=== PATIENT | male | born 1950 | race Caucasian/White ===

== ENCOUNTER 2018-07-09 14:42 | Outpatient (CLI) | payer MEDICARE ==
[2018-07-09 16:05] LABS: Bilirubin Negative (Negative); Blood, Urine Negative (Negative); Clarity CLEAR (Clear); Glucose, Urine (Dipstick) >=1000 mg/dL (Negative); Leukocyte Negative (Negative); Nitrite Negative (Negative); Protein, Urine (Dipstick) Negative (Neg-Trace); Specific Gravity, Urine 1.033 (1.002-1.036); Urobilinogen 0.2 mg/dL (0.2-1.0)
[2018-07-09 16:06] LABS: Hemoglobin 16.5 g/dL (14.0-18.0); Mean Corpuscular HGB CONC 32.9 g/dL (32.0-36.0); Mean Corpuscular Hemoglobin 31.5 pg (27.0-31.0); Mean Corpuscular Volume 95.6 fL (78.0-98.0); Mean Platelet Volume 6.9 fL (7.4-10.4); Platelet Count 183 thou/uL (130-400); RBC Distribution Width 12.2 % (11.5-14.5); Red Blood Cell (RBC) Count 5.25 mill/uL (4.70-6.10); White Blood Cell (WBC) Count 7.3 thou/uL (4.8-10.8)
[2018-07-09 16:08] LABS: Bacteria/HPF None Seen HPF (None Seen); Hyaline Casts/LPF 0-3 HYALINE CAST LPF (0-3 Hyaline); RBC/HPF 0-3 HPF (0-3); Squamous Epithelial None Seen HPF (0-3); WBC/HPF None Seen HPF (0-3)
[2018-07-09 16:23] LABS: Anion Gap 14 mmol/L (10-20); BUN (Urea Nitrogen) 23 mg/dL (8.4-25.7); Calc. Creatinine Clearance 0 mL/min (70-130); Calcium 10.1 mg/dL (7.8-10.44); Carbon Dioxide 26 mmol/L (23-31); Chloride 104 mmol/L (98-107); Estimated GFR-MDRD 77; Glucose 125 mg/dL (80-115); Potassium 4.1 mmol/L (3.5-5.1); Sodium 140 mmol/L (136-145)
--- NOTE | 2018-07-14 16:51 | EKG ---
Test Reason : Blood Pressure : / mmHG Vent. Rate : 056 BPM Atrial Rate : 056 BPM P-R Int : 108 ms QRS Dur : 104 ms QT Int : 438 ms P-R-T Axes : 046 095 023 degrees QTc Int : 422 ms Sinus bradycardia with short [place] Rightward axis Inferior infarct , age undetermined Possible Anterior infarct , age undetermined Abnormal ECG No previous ECGs available Confirmed by ROSENDA ROBB (2) on 07/14/2018 4:51:11 PM Referred By: SARAH Confirmed By:ROSENDA ROBB
== END 2018-07-09 14:43 | disposition home or self-care (01) ==
LOC: LABBT 14:42
PROVIDERS: ATTEND Urology
DX: Z01.818 Encounter for other preprocedural examination (principal); N40.1 Benign prostatic hyperplasia with lower urinary tract symptoms; R35.1 Nocturia; R39.12 Poor urinary stream; R97.20 Elevated prostate specific antigen [PSA]; R81 Glycosuria
CPT/HCPCS: 80048; 81001; 85027; 87086; 93005; 93010

== ENCOUNTER 2018-07-16 05:43 | Day surgery (SDC) | payer MEDICARE ==
[2018-07-09 15:05] VITALS: BMI 32.7
[2018-07-16] MEDS ORDERED: Fentanyl 100 MCG/2 ML VIAL ONE (07:06)
[2018-07-16] MEDS ORDERED: Levofloxacin 500 mg/D5W 100 ml Premix Bag ONE (07:07)
[2018-07-16] MEDS ORDERED: B & O 30 MG SUPP ONE ×2 (07:22→09:33)
[2018-07-16] MEDS ORDERED: Furosemide 20 MG/2 ML VIAL ONE (07:22)
[2018-07-16] MEDS ORDERED: PROPOFOL 200 MG/20 ML VIAL ONE (14:28)
[2018-07-16] MEDS ORDERED: Lidocaine 1% PF 5 ML VIAL ONE (14:28)
[2018-07-16] MEDS ORDERED: Ondansetron HCl/PF 4 MG/2 ML Vial ONE (14:28)
--- NOTE | 2018-07-16 15:04 | OP ---
DATE OF PROCEDURE: 07/16/2018 PREOPERATIVE DIAGNOSIS: Benign prostatic hyperplasia. POSTOPERATIVE DIAGNOSIS: Benign prostatic hyperplasia. PROCEDURE: GreenLight laser vaporization of the prostate with enucleation of the middle and lateral lobes. SURGEON: Aminata Kuo MD ANESTHESIA: General with laryngeal mask airway. FINDINGS: Adequate opening up of a very large prostatic urethra with enucleation of the middle and l ateral lobes, using [phone] joules. COMPLICATIONS: No complications. ESTIMATED BLOOD LOSS: Minimal blood loss. DRAIN REMAINING: Was a 20-Cro[place]ian 2-way. INDICATIONS: Mr. Love is a 68-year-old male, who is followed in the office for BPH and already on maximal medications and opted to proceed with GreenLight laser vaporization of the prostate. The patient was brought into the room by Anesthesia and laid on the table in supine position. After receiving general anesthetic with legs placed in lithotomy position, his perineum was prepped and stephanie ped in sterile fashion. Using a 22.5-[place]at[place] cystoscope and a 30-degree lens, the urethra was uriel ed and the bladder inspected. The UO's were not initially able to be seen given due to the intravesi tanya prostatic nodule, but once this was taken down adequately, the UO's were easily seen and preserve d throughout the rest of the case. A power level of 80 was used when the laser was inside the bladde r on the intravesical lobe as well as at the bladder neck and veru. Otherwise, a power level of 180 was used. Once the middle lobe was taken down, it was brought down to the level of the bladder floor and then the lateral lobes were enucleated, as I moved more distal in the prostatic urethra. Chips were evacuated out and some were large enough that a grasper was required in order to evacuate them. Once the resection had occurred all the way down to the veru, the scope was removed and a good strea m was noted. The scope was put back in and bladder decompressed and hemostasis ensured. Contouring of the bladder neck to ensure that it remained wide open and had less of a chance for elevation or st ricture was performed with a power level of 80 at the end of the case, and at this point, given the t hinning of the bladder neck, the wire was left in place. The scope was removed and a Council cathet er was placed over the wire and to gravity. The patient tolerated the procedure well and was then aw akened and transferred to the PACU in stable condition.
== END 2018-07-16 11:18 | disposition home or self-care (01) ==
LOC: SDC 05:43
PROVIDERS: ATTEND Urology
PROC: 0V508ZZ Destruction of Prostate, Via Natural or Artificial Opening Endoscopic (ICD-10-PCS; principal; 2018-07-16)
DX: N40.1 Benign prostatic hyperplasia with lower urinary tract symptoms (principal); R35.1 Nocturia; R35.0 Frequency of micturition; R39.14 Feeling of incomplete bladder emptying; R39.12 Poor urinary stream; I10 Essential (primary) hypertension; E11.9 Type 2 diabetes mellitus without complications; Z79.82 Long term (current) use of aspirin; Z79.84 Long term (current) use of oral hypoglycemic drugs; Z79.899 Other long term (current) drug therapy
CPT/HCPCS: 88305; J1940; J1956; J2001; J2405; J2704; J3010

== ENCOUNTER 2025-08-02 09:47 | Inpatient (IN) | payer MEDICARE ==
[2025-08-02] MEDS ORDERED: Dexamethasone 10 MG/ML VIAL ONE (10:53)
[2025-08-02 11:08] LABS: #Basophils 0.04 10x3/uL (0.0-0.2); #Eosinophils 0.14 10x3/uL (0.0-0.7); #Monocytes 0.83 10x3/uL (0.11-0.59); #Neutrophils 5.06 10x3/uL (1.40-6.50); %Basophils 0.6 % (0.0-1.0); %Eosinophils 1.9 % (0.0-10.0); %Lymphocytes 14.3 % (21.0-51.0); %Monocytes 11.5 % (0.0-10.0); %Neutrophils 70.4 % (42.0-75.0); Hematocrit 44.1 % (42.0-52.0); Hemoglobin 14.4 g/dL (14.0-18.0); Mean Corpuscular Hemoglobin 28.5 pg (27.0-31.0); Mean Corpuscular Volume 87.3 fL (78.0-98.0); Platelet Count 228 10x3/uL (130-400); Red Blood Cell (RBC) Count 5.05 mill/uL (4.70-6.10); White Blood Cell (WBC) Count 7.19 10x3/uL (4.8-10.8)
[2025-08-02 11:23] LABS: ALT (SGPT) 17 U/L (Less than 45); AST (SGOT) 27 U/L (11-34); Albumin 3.2 g/dL (3.1-4.5); Alkaline Phosphatase 1179 U/L (40-110); Anion Gap 13 mmol/L (10-20); BUN (Urea Nitrogen) 17 mg/dL (8.4-25.7); Bilirubin, Total 0.6 mg/dL (0.3-1.2); Calc. Creatinine Clearance 0 mL/min (70-130); Calcium 9.4 mg/dL (7.8-10.44); Carbon Dioxide 26 mmol/L (23-31); Chloride 100 mmol/L (98-107); Globulin 4.0 g/dL (2.4-3.5); Glucose 181 mg/dL (83-110); Potassium 3.4 mmol/L (3.5-5.1); Sodium 136 mmol/L (136-145)
[2025-08-02] MEDS ORDERED: Guaifenesin DM 100-10/5 ML UDCUP PO PRN (12:50)
[2025-08-02] MEDS ORDERED: Senokot S 8.6-50 MG TAB PO PRN (12:50)
[2025-08-02] MEDS ORDERED: Ondansetron PF 4 MG/2 ML Vial IVP PRN (12:50)
[2025-08-02] MEDS ORDERED: Furosemide 40 MG (4 mL) VIAL ONE (12:57)
[2025-08-02 14:39] VITALS: BMI 28.3
[2025-08-02] MEDS: Furosemide 40 MG (4 mL) VIAL SLOW IVP SCH (15:13)
[2025-08-02] MEDS: Carvedilol 3.125 MG TAB PO SCH (17:19)
[2025-08-03 06:21] LABS: #Basophils Less than 0.03 10x3/uL (0.0-0.2); #Eosinophils Less than 0.03 10x3/uL (0.0-0.7); #Monocytes 0.60 10x3/uL (0.11-0.59); #Neutrophils 7.12 10x3/uL (1.40-6.50); %Basophils 0.1 % (0.0-1.0); %Eosinophils 0.0 % (0.0-10.0); %Lymphocytes 7.8 % (21.0-51.0); %Monocytes 7.1 % (0.0-10.0); %Neutrophils 84.2 % (42.0-75.0); Hematocrit 41.0 % (42.0-52.0); Hemoglobin 13.5 g/dL (14.0-18.0); Mean Corpuscular Hemoglobin 27.9 pg (27.0-31.0); Mean Corpuscular Volume 84.7 fL (78.0-98.0); Platelet Count 229 10x3/uL (130-400); Red Blood Cell (RBC) Count 4.84 mill/uL (4.70-6.10); White Blood Cell (WBC) Count 8.46 10x3/uL (4.8-10.8)
[2025-08-03 06:43] LABS: ALT (SGPT) 14 U/L (Less than 45); AST (SGOT) 22 U/L (11-34); Albumin 2.9 g/dL (3.1-4.5); Alkaline Phosphatase 1145 U/L (40-110); Anion Gap 15 mmol/L (10-20); BUN (Urea Nitrogen) 22 mg/dL (8.4-25.7); Bilirubin, Total 0.5 mg/dL (0.3-1.2); Calc. Creatinine Clearance 103 mL/min (70-130); Calcium 8.9 mg/dL (7.8-10.44); Carbon Dioxide 25 mmol/L (23-31); Chloride 100 mmol/L (98-107); Globulin 3.7 g/dL (2.4-3.5); Glucose 211 mg/dL (83-110); Iron 81 ug/dL (65-175); Iron Binding Capacity, Total 206 mcg/dL (261-462); Potassium 3.6 mmol/L (3.5-5.1); Sodium 136 mmol/L (136-145)
[2025-08-03 07:01] LABS: Ferritin 594.74 ng/mL (22-322); Thyroid Stimulating Hormone 0.285 uIU/mL (0.35-4.94)
[2025-08-03] MEDS: Enoxaparin 40 MG (0.4 mL) SYRINGE SC SCH (08:38)
[2025-08-03 10:53] LABS: Free T4 (Free Thyroxine) 1.15 ng/dL (0.70-1.48)
[2025-08-03] MEDS ORDERED: Dextrose 50% Abboject 50 ML SYRINGE SLOW IVP PRN (10:53)
[2025-08-03] MEDS ORDERED: Glucagon 1 MG/ML KIT IM PRN (10:53)
[2025-08-03 14:58] VITALS: BMI 28.0
[2025-08-03] MEDS: metFORMIN 500 MG TAB PO SCH (19:51)
[2025-08-04 05:01] LABS: #Basophils 0.04 10x3/uL (0.0-0.2); #Eosinophils 0.06 10x3/uL (0.0-0.7); #Monocytes 1.07 10x3/uL (0.11-0.59); #Neutrophils 8.07 10x3/uL (1.40-6.50); %Basophils 0.4 % (0.0-1.0); %Eosinophils 0.6 % (0.0-10.0); %Lymphocytes 11.5 % (21.0-51.0); %Monocytes 10.1 % (0.0-10.0); %Neutrophils 76.2 % (42.0-75.0); Hematocrit 47.4 % (42.0-52.0); Hemoglobin 15.6 g/dL (14.0-18.0); Mean Corpuscular Hemoglobin 28.2 pg (27.0-31.0); Mean Corpuscular Volume 85.6 fL (78.0-98.0); Platelet Count 261 10x3/uL (130-400); Red Blood Cell (RBC) Count 5.54 mill/uL (4.70-6.10); White Blood Cell (WBC) Count 10.59 10x3/uL (4.8-10.8)
[2025-08-04] MEDS: Acetaminophen 325 MG TAB PO PRN (05:07)
[2025-08-04 05:08] LABS: Anion Gap 15 mmol/L (10-20); BUN (Urea Nitrogen) 29 mg/dL (8.4-25.7); Calc. Creatinine Clearance 96 mL/min (70-130); Calcium 9.6 mg/dL (7.8-10.44); Carbon Dioxide 25 mmol/L (23-31); Chloride 98 mmol/L (98-107); Glucose 157 mg/dL (83-110); Potassium 3.9 mmol/L (3.5-5.1); Sodium 134 mmol/L (136-145)
[2025-08-04] MEDS: Lisinopril 20 MG TAB PO SCH (08:26)
[2025-08-04] MEDS: Finasteride 5 MG TAB PO SCH (08:28)
[2025-08-04] MEDS ORDERED: ENALAPRIL MALEATE 10 MG PO SCH (09:00)
[2025-08-04] MEDS: Verapamil 240 MG SR.TAB PO SCH (09:46)
[2025-08-04 11:59] VITALS: BP 130/77; TEMP 97
[2025-08-05] MEDS ORDERED: Verapamil 240 MG SR.TAB PO SCH (09:00)
[2025-08-05] MEDS ORDERED: Aspirin 81 mg Enteric Coated Tablet PO SCH (09:00)
[2025-08-05] MEDS ORDERED: FLU (Fluad Triv) 25-26 (65UP)PF 45 MCG/0.5 ML Syringe IM ONE (15:15)
[2025-08-05] MEDS ORDERED: PNEUMOC 20-VAL CONJ-DIP CRM/PF 0.5 ML SYRINGE IM ONE (15:15)
== END 2025-08-04 12:54 | disposition home or self-care (01) | DRG 291 ==
LOC: ERS 09:47 → OBS 12:24 → OBSVTOIN 08-04 09:08
PROVIDERS: ADMIT Hospitalist; ATTEND Hospitalist
PROC: 3E0234Z Introduction of Serum, Toxoid and Vaccine into Muscle, Percutaneous Approach (ICD-10-PCS; principal; 2025-08-04)
DX: I11.0 Hypertensive heart disease with heart failure (principal); I50.31 Acute diastolic (congestive) heart failure; E11.9 Type 2 diabetes mellitus without complications; E78.5 Hyperlipidemia, unspecified; N40.0 Benign prostatic hyperplasia without lower urinary tract symptoms; E87.6 Hypokalemia; Z79.52 Long term (current) use of systemic steroids; Z79.82 Long term (current) use of aspirin; Z90.49 Acquired absence of other specified parts of digestive tract; Z79.899 Other long term (current) drug therapy; Z79.84 Long term (current) use of oral hypoglycemic drugs; Z23 Encounter for immunization; Z82.49 Family history of ischemic heart disease and other diseases of the circulatory system
CPT/HCPCS: 36415; 36416; 71045; 80048; 80053; 82728; 83540; 83550; 83880; 84439; 84443; 84481; 84484; 85025; 93005; 93306; 94760; 96372; 96374; 96375; 96376; 97139; G0378; J1100; J1650; J1815; J1940

== ENCOUNTER 2025-08-22 12:24 | Emergency (ER) | payer MEDICARE ==
[2025-08-22] MEDS ORDERED: Iopamidol 370 76% 100 ML VIAL ONE (12:31)
[2025-08-22 15:30] LABS: #Basophils 0.06 10x3/uL (0.0-0.2); #Eosinophils 0.05 10x3/uL (0.0-0.7); #Monocytes 0.82 10x3/uL (0.11-0.59); #Neutrophils 6.63 10x3/uL (1.40-6.50); %Basophils 0.7 % (0.0-1.0); %Eosinophils 0.6 % (0.0-10.0); %Lymphocytes 7.4 % (21.0-51.0); %Monocytes 9.9 % (0.0-10.0); %Neutrophils 80.1 % (42.0-75.0); Hematocrit 45.1 % (42.0-52.0); Hemoglobin 14.8 g/dL (14.0-18.0); Mean Corpuscular Hemoglobin 28.2 pg (27.0-31.0); Mean Corpuscular Volume 85.9 fL (78.0-98.0); Platelet Count 285 10x3/uL (130-400); Red Blood Cell (RBC) Count 5.25 mill/uL (4.70-6.10); White Blood Cell (WBC) Count 8.28 10x3/uL (4.8-10.8)
[2025-08-22 15:51] LABS: ALT (SGPT) 23 U/L (Less than 45); AST (SGOT) 36 U/L (11-34); Albumin 3.0 g/dL (3.1-4.5); Alkaline Phosphatase 1663 U/L (40-110); Anion Gap 22 mmol/L (10-20); BUN (Urea Nitrogen) 31 mg/dL (8.4-25.7); Bilirubin, Total 0.5 mg/dL (0.3-1.2); Calc. Creatinine Clearance 0 mL/min (70-130); Calcium 9.4 mg/dL (7.8-10.44); Carbon Dioxide 21 mmol/L (23-31); Chloride 96 mmol/L (98-107); Globulin 4.3 g/dL (2.4-3.5); Glucose 171 mg/dL (83-110); Potassium 5.2 mmol/L (3.5-5.1); Sodium 134 mmol/L (136-145)
== END 2025-08-22 18:46 | disposition home or self-care (01) ==
LOC: ERS 12:24
DX: B34.9 Viral infection, unspecified (principal); M89.9 Disorder of bone, unspecified; E11.9 Type 2 diabetes mellitus without complications; I10 Essential (primary) hypertension; E78.5 Hyperlipidemia, unspecified; Z79.82 Long term (current) use of aspirin; Z79.84 Long term (current) use of oral hypoglycemic drugs; Z79.899 Other long term (current) drug therapy
CPT/HCPCS: 71045; 71260; 74177; 80053; 83880; 84484; 85025; 87428; G0103